=== PATIENT | female | born 1995 | race Caucasian/White ===

== ENCOUNTER 2017-12-21 05:00 | Inpatient (IN) ==
[2017-12-21] MEDS ORDERED: Famotidine 20 MG/2 ML VIAL IVP PRN (05:38)
[2017-12-21 06:54] LABS: Amphetamine Screen,Urine Negative ng/mL (Cutoff=1000); Barbiturate Screen,Urine Negative ng/mL (Cutoff=200); Benzodiazepines Screen,Urine Negative ng/mL (Cutoff=200); Cannabinoid Screen,Urine Negative ng/mL (Cutoff = 50); Cocaine Screen,Urine Negative ng/mL (Cutoff= 300); Opiate Screen,Urine Negative ng/mL (Cutoff=300); Phencyclidine Screen,Urine Negative ng/mL (Cutoff=25)
[2017-12-21 07:00] LABS: Basophils # 0.1 K/mcL (0.0-0.2); Basophils % 0.4 %; Eosinophils # 0.2 K/mcL (0.0-0.6); Eosinophils % 1.1 %; Hematocrit 32.2 % (35.3-44.9); Hemoglobin 10.5 g/dL (11.5-15.4); Immature Granulocytes % 1.4 % (0-4); Lymphocytes # 3.9 K/mcL (0.6-4.6); Lymphocytes % 23.4 %; Mean Corpuscular HGB Conc 32.6 g/dL (31.6-35.5); Mean Corpuscular Hemoglobin 30.8 pg (28.0-33.3); Mean Corpuscular Volume 94.4 fL (83.0-100.0); Mean Platelet Volume 12.5 fL (9.4-12.4); Monocytes # 1.2 K/mcL (0.0-1.3); Monocytes % 7.4 %; Neutrophils # 11.2 K/mcL (1.6-8.9); Platelet Count 181 K/mcL (140-400); Red Blood Count 3.41 M/mcL (3.82-4.97); Segmented Neutrophils % 66.3 %
[2017-12-21] MEDS ORDERED: 0.9 % Sodium Chloride 500 ML ONE (07:33)
--- NOTE | 2017-12-21 08:50 | OB/GYN History & Physical ---
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 Anderson is a 22 year old female with an EDC of 12/28/17 x 8 week ultrasound who presents for induction of labor. Patient has a history of hemorrhage. 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 She has successfully delivered since then with pretreatment using fresh frozen plasma. She is followed by hematology. She also has a history of HSV infection and has been on prophylaxis with Valtrex. She is reports no active lesions. Her blood type is O+, she is rubella immune, varicella immune and her GBS is negative. She has also had urinary tract infections during this which been treated. She has a history of pyelonephritis with previous pregnancies. She is requesting a tubal ligation and signed papers in July. She has been diagnosed with anemia and has been on iron twice a day. She reports an active fetus, denies any vaginal bleeding or loss of fluid. She is not appreciating any significant contractions. Earlier in the she had issues with recurrent headaches and blurred vision. 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 She has had new glasses and her headaches and blurred vision episodes have resolved Past Med Surg Social Fam HX - Past Medical History Attestation: Yes The following information was validated with the patient. Source: patient, old records reviewed Medical history: asthma, migraine, other Psychiatric history: no psych history - Past Surgical History Surgical History: other (Fascial surgery, T+A, I&D of left breast abscess) - Social History Smoking Status: Current every day smoker Packs per day: 1/2 Smokeless Tobacco Status: No Alcohol use: none Drug use: none Occupational status: unemployed Current living situation: Home - Independent Activity Level: Independent ambulation Recent Out of Country Travel Within the Last 8 Weeks: No Exposure or Possible Exposure to Illness During Travel: No - Family History Mother Adopted: No Age: 42 Living Status: Still Living Hx Family Cardiac Disorders: No Hx Family Respiratory Disorders: No Hx Family Cancer: No Hx Family GI Disorders: No Hx Family Genitourinary Disorders: No Hx Family Endocrine Disorder: No Hx Family Musculoskeletal Disorders: No Hx Family Neuromuscular Disorders: No Hx Family Neurologic Disorders: No Hx Family HEENT Disorders: No Hx Family Autoimmune Disorders: No Hx Family Reproductive Disorders: No Hx Family Psychosocial Disorders: No Hx Family Medical Disorders: No Obstetrical History - Pregnancies : 4 Para: 3 Term: 3 Livin - History/Complications History/Complications: hemorrhage with first delivery Medications and Allergies Formula Tablet 1 tab PO DAILY 12/21/17 [History] 3 Allergy/AdvReac Type Severity Reaction Status Date / Time hydrocodone [From Vicodin] Allergy Severe Swelling Verified 12/21/17 05:35 of the Eye Review of System OB All systems PM: reviewed and no additional remarkable complaints except as stated - Constitutional Constitutional ROS IM: weight gain - Eyes Eyes: bilateral: blurred vision (Episodic) - Neurological Nerological: as per HPI, headache(s), other visual disturbances Exam - Vital Signs Vital signs: Initial Vital Signs Temp Pulse Resp BP 98.6 F 118 16 106/64 12/21/17 05:23 12/21/17 05:23 12/21/17 05:23 12/21/17 05:23 - Constitutional Constitutional: well developed, well nourished, no acute distress, average body habitus - HEENT HEENT: Normocephaly, Mucus Membranes Moist - Neck Neck exam: supple - Lungs Respiratory exam: CTAB - Cardiovascular Cardiovascular exam: RRR - Abdomen Abdomen: Present: bowel sounds normal, gravid, non tender - Extremities Extremities exam: normal inspection, warm Deep Tendon Reflex Grade: 3+ Normal But Brisk - Vulva Vulva: bilateral: normal - Vagina Vagina: Present: normal moisture - Cervix Dilation: 3 Effacement: 70 (vtx) Station: -2 - Anus/Rectum Anus/Rectum: Present: normal perianal skin Results Result Diagrams: 12/21/17 06:28 Abnormal lab results WBC 16.8 K/mcL (4.3-11.1) H 12/21/17 06:28 RBC 3.41 M/mcL (3.82-4.97) L 12/21/17 06:28 Hgb 10.5 g/dL (11.5-15.4) L 12/21/17 06:28 Hct 32.2 % (35.3-44.9) L 12/21/17 06:28 MPV 12.5 fL (9.4-12.4) H 12/21/17 06:28 Neutrophils # 11.2 K/mcL (1.6-8.9) H 12/21/17 06:28 All other labs normal. - VTE Reasons for not Prescribing Prophylaxis: Treatment not Indicated - Low risk for VTE
[2017-12-21] MEDS ORDERED: miSOPROStol 100 MCG TABLET PO ONE (09:00)
--- NOTE | 2017-12-21 15:12 | OB Labor Progress Note ---
Date of Encounter: 12/21/17 Time of Encounter: 15:10 Labor Progress Note - Subjective Subjective: The patient is comfortable with contractions - Vital Signs Vital Signs: Afebrile, vital signs stable - Cervix Cervix: 4/70/-1, vtx - Heart Tones Heart Tones: 120s baseline, CAT1 - [place]: ctx irreg q 3-4' - Interventions Interventions: 39 week IUP for induction of labor with medical management, history of decreased factor XI. Patient is status post 2 units of fresh frozen plasma and has now been started on Cytotec 4 hours ago. She is having some irregular contractions. - Plan Plan: Amniotomy with moderate amount of clear fluid. Continue induction of labor. Anticipate vaginal delivery. Augment with Pitocin if needed
[2017-12-21] MEDS ORDERED: D5% in 0.45% NACL 1,000 ML IVC SCH (15:30)
[2017-12-21] MEDS ORDERED: Oxytocin 20 units/ LR 1000 mL 20 UNIT/1,000 ML BAG IVC ONE (16:20)
[2017-12-21] MEDS ORDERED: Oxytocin 20 units/ LR 1000 mL 20 UNIT/1,000 ML BAG IVC SCH (16:30)
--- NOTE | 2017-12-21 17:12 | OB Labor Progress Note ---
Date of Encounter: 12/21/17 Time of Encounter: 17:10 Labor Progress Note - Subjective Subjective: Patient doing well. Discussed POC with patient. Patient denies any questions or concerns. - Cervix Cervix: 5/80/-1 - Heart Tones Heart Tones: 135 bpm moderate amount variability +15x15 accels no decels noted. CAt. 1 tracing - [place]: 4-5 min apart - Interventions Interventions: SVE, IUPC placed without difficulty. Patient tolerated well. - Plan Plan: Continue labor management.
[2017-12-21] MEDS ORDERED: *HR* Nalbuphine 10 MG/ML AMPUL IVP PRN (21:19)
--- NOTE | 2017-12-21 22:54 | OB Labor Progress Note ---
Date of Encounter: 12/21/17 Time of Encounter: 22:52 Labor Progress Note - Subjective Subjective: The patient reports pressure and is requesting to be examined. She has had some relief with Nubain - Vital Signs Vital Signs: Afebrile, vital signs stable - Cervix Cervix: 8/90/0 - Heart Tones Heart Tones: 110s baseline CAT1 - [place]: Contractions every 2-3 minutes on 16 milliunits of Pitocin - Interventions Interventions: 39 week IUP for induction of labor, factor XI deficiency status post fresh frozen plasma 2 units for controlled delivery - Plan Plan: Anticipate vaginal delivery
[2017-12-22] MEDS ORDERED: Lidocaine/EPI 1:100k 2% 20 ML VIAL INFILT ONE (00:02)
[2017-12-22] MEDS ORDERED: Ringers Solution, Lactated 1,000 ML ONE (00:09)
--- NOTE | 2017-12-22 00:45 | OB/GYN Procedure Note ---
Delivery - Delivery Date: 12/22/17 Provider: Baylee Rinaldi Intrapartum events: none Delivery induction: misoprostol Delivery augmentation: rupture of membranes, pitocin Delivery monitor: external FHT, external uterine, internal uterine Anesthesia: intravenous Estimated Blood Loss: 200 - (s) A Delivery Date: 12/22/17 Delivery Time: 00:11 Presentation: vertex Position: PAUL Route of delivery: Gender: Male Viability: Viable Pounds: 6 Ounces: 12 Weight Gram: 3.06 kg at 1 minute: 8 at 5 mins: 9 Shoulder Dystocia: not encountered Specimens collected: cord blood Placenta: spontaneous Cord: nuchal cord, 3 umbilical vessels, nuchal reduced - Repair Episiotomy: none Laceration Description: Periurethral, Superficial - Complications Delivery complications: none Delivery comments: Called to the room with patient unblocked and pushing although not complete with head on the perineum. Nuchal checked and nuchal reduced. was then delivered in the PAUL position of a vigorous male infant weighing 6 lbs. 12 oz. with Apgars of 8 at 1 minute and 9 at 5 minutes. The was placed on the maternal abdomen and the cord was clamped and cut after pulsations ceased. Cord segment obtained. Cord blood obtained. Placenta delivered spontaneous and intact after IV Pitocin and 400 MCG's of oral Cytotec given. There were superficial midline periurethral lacerations which were hemostatic and unrepaired. There were no cervical or perineal/vaginal lacerations. Estimated blood loss 200 mL complications none. Both mother and infant recovering in stable condition in the LDR - Disposition Mom disposition: stable in LDR disposition: stable in LDR
[2017-12-22] MEDS ORDERED: Rho Immune Globulin 1,500 UNIT SYRINGE IM PRN (03:18)
[2017-12-22] MEDS ORDERED: Acetaminophen 325 MG TABLET PO PRN (03:18)
[2017-12-22] MEDS ORDERED: Measles/Mumps/Rubella Vacc 0.5 ML VIAL SQ PRN (03:18)
[2017-12-22] MEDS ORDERED: Oxytocin 20 units/ LR 1000 mL 20 UNIT/1,000 ML BAG IVC SCH (03:18)
[2017-12-22 04:42] LABS: Lymphocytes % 6.8 %; Monocytes % 4.7 %
[2017-12-22 04:44] LABS: Basophils % 0.1 %; Hematocrit 29.3 % (35.3-44.9); Hemoglobin 9.6 g/dL (11.5-15.4); Mean Corpuscular HGB Conc 32.8 g/dL (31.6-35.5); Mean Corpuscular Hemoglobin 31.1 pg (28.0-33.3); Mean Corpuscular Volume 94.8 fL (83.0-100.0); Monocytes # 1.4 K/mcL (0.0-1.3); Neutrophils # 25.8 K/mcL (1.6-8.9); Platelet Count 157 K/mcL (140-400); Red Blood Count 3.09 M/mcL (3.82-4.97); Red Cell Distribution Width 13.6 % (11.5-14.5); Segmented Neutrophils % 87.4 %
[2017-12-22 05:51] LABS: Platelet Estimate Normal (Normal)
[2017-12-22 05:52] LABS: Anisocytosis 1+ (Not Present)
[2017-12-22] MEDS: miSOPROStol 100 MCG TABLET PO SCH ×3 (07:12→19:36)
[2017-12-22] MEDS: Prenatal Vit/FA 1 EACH TABLET PO SCH (08:01)
[2017-12-22] MEDS: Ibuprofen 600 MG TABLET PO PRN ×3 (08:01→19:36)
[2017-12-22] MEDS ORDERED: miSOPROStol 100 MCG TABLET PO ONE (10:01)
[2017-12-22 15:15] LABS: Basophils % 0.1 %; Eosinophils % 0.2 %; Hematocrit 29.1 % (35.3-44.9); Hemoglobin 9.5 g/dL (11.5-15.4); Immature Granulocytes % 0.7 % (0-4); Lymphocytes # 3.1 K/mcL (0.6-4.6); Lymphocytes % 15.2 %; Mean Corpuscular HGB Conc 32.6 g/dL (31.6-35.5); Mean Corpuscular Hemoglobin 31.4 pg (28.0-33.3); Mean Platelet Volume 12.9 fL (9.4-12.4); Monocytes # 1.8 K/mcL (0.0-1.3); Monocytes % 8.8 %; Neutrophils # 15.1 K/mcL (1.6-8.9); Platelet Count 176 K/mcL (140-400); Red Blood Count 3.03 M/mcL (3.82-4.97); Red Cell Distribution Width 13.6 % (11.5-14.5)
[2017-12-23] MEDS: miSOPROStol 100 MCG TABLET PO SCH (00:38)
[2017-12-23] MEDS: Ibuprofen 600 MG TABLET PO PRN ×2 (00:38→08:03)
[2017-12-23] MEDS: Prenatal Vit/FA 1 EACH TABLET PO SCH (08:03)
[2017-12-23 08:19] VITALS: BP 100/66
--- NOTE | 2017-12-23 08:48 | Discharge Summary ---
Date of Encounter: 12/23/17 Time of Encounter: 08:45 - Discharge Diagnosis (1) Factor V deficiency Priority: Secondary Status: Acute Comments: Follow-up with hematology (2) anemia Priority: Secondary Status: Acute Comments: Continue iron twice a day (3) Status post vaginal delivery Priority: Primary Status: Acute Comments: Feeling well Out of bed without dizziness Vital signs stable Cramping minimal Bottlefeeding Voiding without difficulty Passing flatus, but no BM yet Lochia light Tolerating regular diet Pain well controlled with by mouth pain meds Discharge to guest today (4) Factor XI deficiency Priority: Secondary Status: Chronic Comments: Follow-up with hematology - Discharge Medications Prescriptions: Ibuprofen [Motrin] 600 mg PO Q6HR PRN #30 tablet PRN Reason: Cramping Docusate [Colace] 100 mg PO BID #60 capsule Ferrous Sulfate 325 mg PO BID #60 tablet Home Medications: Formula Tablet 1 tab PO DAILY 12/21/17 [History] Acetaminophen [Tylenol] 650 mg PO Q6HR PRN tablet 12/23/17 [Rx] Docusate [Colace] 100 mg PO BID #60 capsule 12/23/17 [Rx] Ferrous Sulfate 325 mg PO BID #60 tablet 12/23/17 [Rx] Ibuprofen [Motrin] 600 mg PO Q6HR PRN #30 tablet 12/23/17 [Rx] Allergies/Adverse Reactions: 3 Allergy/AdvReac Type Severity Reaction Status Date / Time hydrocodone [From Vicodin] Allergy Severe Swelling Verified 12/21/17 05:35 of the Eye Data Procedures and tests throughout hospitalization: Laboratory Tests 12/21/17 12/21/17 12/21/17 06:23 06:28 06:28 WBC 16.8 H RBC 3.41 L Hgb 10.5 L Hct 32.2 L MCV 94.4 MCH 30.8 MCHC 32.6 RDW 14.0 Plt Count 181 MPV 12.5 H Immature Gran % 1.4 Seg Neutrophils % 66.3 Lymphocytes % 23.4 Monocytes % 7.4 Eosinophils % 1.1 Basophils % 0.4 Neutrophils # 11.2 H Lymphocytes # 3.9 Monocytes # 1.2 Eosinophils # 0.2 Basophils # 0.1 Platelet Estimate Anisocytosis Urine Opiates Screen Negative Ur Barbiturates Screen Negative Ur Phencyclidine Scrn Negative Ur Amphetamines Screen Negative U Benzodiazepines Scrn Negative Urine Cocaine Screen Negative U Marijuana (THC) Screen Negative Blood Type O POSITIVE Antibody Screen NEGATIVE 12/22/17 12/22/17 04:12 14:48 WBC 29.5 H D 20.2 H RBC 3.09 L 3.03 L Hgb 9.6 L 9.5 L Hct 29.3 L 29.1 L MCV 94.8 96.0 MCH 31.1 31.4 MCHC 32.8 32.6 RDW 13.6 13.6 Plt Count 157 176 MPV 13.0 H 12.9 H Immature Gran % 1.0 0.7 Seg Neutrophils % 87.4 75.0 Lymphocytes % 6.8 15.2 Monocytes % 4.7 8.8 Eosinophils % 0.0 0.2 Basophils % 0.1 0.1 Neutrophils # 25.8 H 15.1 H Lymphocytes # 2.0 3.1 Monocytes # 1.4 H 1.8 H Eosinophils # 0.0 0.0 Basophils # 0.0 0.0 Platelet Estimate Normal Anisocytosis 1+ A Urine Opiates Screen Ur Barbiturates Screen Ur Phencyclidine Scrn Ur Amphetamines Screen U Benzodiazepines Scrn Urine Cocaine Screen U Marijuana (THC) Screen Blood Type Antibody Screen Labs on day of discharge: Labs from last 24 hours 12/22/17 14:48 WBC 20.2 H RBC 3.03 L Hgb 9.5 L Hct 29.1 L MCV 96.0 MCH 31.4 MCHC 32.6 RDW 13.6 Plt Count 176 MPV 12.9 H Immature Gran % 0.7 Seg Neutrophils % 75.0 Lymphocytes % 15.2 Monocytes % 8.8 Eosinophils % 0.2 Basophils % 0.1 Neutrophils # 15.1 H Lymphocytes # 3.1 Monocytes # 1.8 H Eosinophils # 0.0 Basophils # 0.0 Date of admission: 12/21/17 05:07 Primary care physician: PCP NONE Consults: 12/22/17 03:18 Consult to College Admissions Counselor [CONS] Routine Comment: Vaginal delivery, consult needed Discharging clinician: Raquel Vaz Anticipated date of discharge: 12/23/17 - Patient Status Disposition: Home, Self-Care Condition: Good Functional capacity at discharge: independent ambulation Overall status at discharge: patient is progressing back to baseline - Discharge Instructions Follow Up With: NONE,PCP [Primary Care Provider] - Baylee Rinaldi MD [Partnered Physician] - - Diet and Activity Activity: increase activity as tolerated Diet: regular diet Hospital Course Reason for admission: induction of labor, IUP at term Delivery: Episiotomy: none Laceration: other (Superficial periurethral) Other procedures: none complications: none Discharge diagnosis: IUP at term delivered baby: male Time Attestation: Total time spent providing and/or coordinating discharge services: Time Spent: Less than 30 minutes Exam - Constitutional Vitals: Temp Pulse Resp BP Pulse Ox 98.4 F 86 12 100/66 98 12/23/17 08:11 12/23/17 08:11 12/23/17 08:11 12/23/17 08:11 12/23/17 08:11 General appearance IM: A&O X 3 - Respiratory Respiratory exam: Present: CTAB - Cardiovascular Cardiovascular exam IM: Present: RRR, +S1, +S2 - GI/Abdominal GI/Abdominal exam IM: normal bowel sounds, no peritoneal signs - Rectal Rectal exam: deferred - Uterine Tone: Firm Uterus Position: 2 Fingers Below Umbilicus, Midline - Extremities Exam Extremities exam IM: Present: normal inspection, pedal edema, radial pulses palpable and symmetrical - Neurological Exam Neurological exam: alert, oriented X3 - Psychiatric Additional comments: Patient feeling mentally well today. She denies history of depression. Signs and symptoms of depression discussed and patient verbalizes understanding of when to call office. - Other Additional findings: Breasts: Nipples intact without erythema; breast soft, nontender.
== END 2017-12-23 11:30 | disposition home or self-care (01) | DRG 560 ==
LOC: 1NENULAB 05:07 → 1NENUOBS 12-22 03:03
PROVIDERS: ADMIT Obstetrics & Gynecology; ATTEND Obstetrics & Gynecology